=== PATIENT | male | born 1985 ===

== ENCOUNTER 2018-04-12 12:09 | Emergency (ER) | payer BC ==
[2018-04-12] MEDS ORDERED: Sodium Chloride 0.9% 1,000 ML IV STA ×3 (13:04→21:46)
[2018-04-12 13:46] LABS: ALB/GLOB RATIO 1.3 (1.0-2.1); ALBUMIN 4.7 g/dL (3.5-5.0); ALT/SGPT 91 U/L (21-72); AST/SGOT 54 U/L (17-59); BLOOD UREA NITROGEN 16 mg/dl (9-20); CALCIUM 9.6 mg/dL (8.4-10.2); GFR NON-AFRICAN AMERICAN > 60
[2018-04-12 13:51] LABS: BASO % 0.2 % (0.0-2.0); EOS % 0.5 % (0.0-4.0); HEMOGLOBIN 16.1 g/dL (12.0-18.0); LYMPH # 0.4 K/uL (1.0-4.3); LYMPH % 4.2 % (20.0-40.0); MEAN CELL VOLUME 93.6 fl (80.0-94.0); MEAN CORPUSCULAR HEMOGLOBIN 32.7 pg (27.0-31.0); MEAN PLATELET VOLUME 9.5 fl (7.2-11.7); MONO # 0.4 K/uL (0.0-0.8); MONO % 3.6 % (0.0-10.0); NEUT # 9.2 K/uL (1.8-7.0); NEUT % 91.5 % (50.0-75.0); PLATELET COUNT 191 K/uL (130-400); RBC 4.93 Mil/uL (4.40-5.90)
--- NOTE | 2018-04-12 14:04 | ED PDOC ---
HPI:Nausea, Vomiting, Diarrhea Time Seen by Provider: 04/12/18 12:39 Chief Complaint (Nursing): GI Problem Chief Complaint (Provider): N/V diarrhea History Per: Patient History/Exam Limitations: no limitations Additional Complaint(s): 32 y/o M with no significant PMH who presents with N/V and diarrhea since yesterday. Pt states that he had one episode of vomitting last night and then began having persistent diarrhea since then. Denies fever, chills, night sweats, ear pain, sore throat, cough, abdominal pain. He has not been drinking much as "everything is going right through me". He continues to have some nausea. He recently returned from the [place] 3 days ago and his son was seen in ED yesterday (and is here again today) with recurrent N/V and diarrhea. Denies drinking non-bottled water or eating raw foods in the DR. Past Medical History Reviewed: Historical Data, Nursing Documentation, Vital Signs Vital Signs: Last Vital Signs Temp 99.6 F 04/12/18 12:13 Pulse 121 H 04/12/18 12:13 Resp 18 04/12/18 12:13 BP 151/97 H 04/12/18 12:13 Pulse Ox 99 04/12/18 12:13 - Medical History PMH: No Chronic Diseases - Family History Family History: States: Unknown Family Hx - Home Medications Home Medications: Ambulatory Orders Medication Instructions Recorded Ondansetron ODT [Zofran ODT] 4 mg PO Q8 PRN 2 Days odt 04/12/18 - Allergies Allergies/Adverse Reactions: Allergies Allergy/AdvReac Type Severity Reaction Status Date / Time No Known Allergies Allergy Verified 04/12/18 12:12 Review of Systems Constitutional: Negative for: Fever, Chills Gastrointestinal: Positive for: Nausea, Vomiting, Diarrhea. Negative for: Abdominal Pain Physical Exam - Reviewed Nursing Documentation Reviewed: Yes Vital Signs Reviewed: Yes - Physical Exam Appears: Positive for: Non-toxic Head Exam: Positive for: ATRAUMATIC Skin: Positive for: Normal Color Eye Exam: Positive for: Normal appearance ENT: Positive for: TM Is/Are (Left occluded by cerumen, Right normal). Negative for: Nasal Congestion, Pharyngeal Erythema, Tonsillar Exudate Neck: Positive for: Normal Cardiovascular/Chest: Positive for: Regular Rate, Rhythm Respiratory: Positive for: Normal Breath Sounds Gastrointestinal/Abdominal: Positive for: Bowel Sounds (hyperactive), Soft. Negative for: Tenderness, Distended, Guarding Lymphatic: Positive for: Normal Exam Neurologic/Psych: Positive for: Alert, Oriented - Laboratory Results Result Diagrams: 04/12/18 13:13 04/12/18 13:13 Lab Results: Total Bilirubin 0.9 mg/dl (0.2-1.3) 04/12/18 13:13 AST 54 U/L (17-59) 04/12/18 13:13 ALT 91 U/L (21-72) H 04/12/18 13:13 Alkaline Phosphatase 91 U/L (38-126) 04/12/18 13:13 Total Protein 8.3 G/DL (6.3-8.2) H 04/12/18 13:13 Albumin 4.7 g/dL (3.5-5.0) 04/12/18 13:13 Globulin 3.6 gm/dL (2.2-3.9) 04/12/18 13:13 Albumin/Globulin Ratio 1.3 (1.0-2.1) 04/12/18 13:13 - ECG O2 Sat by Pulse Oximetry: 99 Medical Decision Making Medical Decision Making: CBC, CMP NS 1L IV x 1 Zofran 4mg IV x 1 14:00: pt c/o FELDMAN, Toradol 15mg IV x 1 ordered. 16:33: re-evaluated, feeling slightly better after fluids, but T: 100.7F and HR 115. Pt ordered for an additional 1L NS and Tylenol 650mg PO x 1. 19:45: T: 100.4 and HR 112, pt given additional Ibuprofen 600mg PO x 1 and Tylenol 325mg PO x 1. EKG ordered. 20:15: Patient endorsed to [facility] pending re-evaluation. Disposition - Clinical Impression Clinical Impression: Gastroenteritis, Vomiting - Patient ED Disposition Is Patient to be Admitted: Transfer of Care ([facility] Chery) - Disposition Referrals: Lynda Rubi MD [Staff Provider] - Disposition: Transfer of Care Disposition Time: 20:15 Condition: FAIR Additional Instructions: Stay hydrated as much as possible and avoid milk products or greasy foods. Would recommend eating foods like bananas, rice, applesauce, tea and toast. Wash your hands frequently as you are likely very contagious. F/u with primary care doctor for routine check ups. Return to ER if you are unable to tolerate liquids and stop urinating well. Prescriptions: Ondansetron ODT [Zofran ODT] 4 mg PO Q8 PRN 2 Days odt PRN Reason: Nausea/Vomiting Instructions: Nausea and Vomiting, Adult (DC) Forms: [facility] ([place]ian), [facility] ED School/Work Excuse Print Language: UKRAINIAN
[2018-04-12 14:55] LABS: BANDS 1 % (0-2); LYMPHOCYTE 6 % (20-50); MONOCYTE 7 % (0-10); NEUTROPHIL 86 % (42-75); TOTAL CELLS COUNTED 100
[2018-04-12 14:56] LABS: PLATELET ESTIMATE NORMAL (NORMAL)
--- NOTE | 2018-04-12 21:33 | ED PDOC ---
- Laboratory Results Result Diagrams: 04/12/18 13:13 04/12/18 13:13 Lab Results: Total Bilirubin 0.9 mg/dl (0.2-1.3) 04/12/18 13:13 AST 54 U/L (17-59) 04/12/18 13:13 ALT 91 U/L (21-72) H 04/12/18 13:13 Alkaline Phosphatase 91 U/L (38-126) 04/12/18 13:13 Total Protein 8.3 G/DL (6.3-8.2) H 04/12/18 13:13 Albumin 4.7 g/dL (3.5-5.0) 04/12/18 13:13 Globulin 3.6 gm/dL (2.2-3.9) 04/12/18 13:13 Albumin/Globulin Ratio 1.3 (1.0-2.1) 04/12/18 13:13 - ECG ECG: Positive for: Viewed By Me (reviewed by ED attending) ECG Rhythm: Positive for: Sinus Tachycardia O2 Sat by Pulse Oximetry: 99 - Progress ED Course And Treament: Case endorsed to ad writer from Deo Levy PA-C pending repeat vitals, ekg Tylenol and IV fluid bolus ordered for continued fever 23:30 Patient states he is feeling better. Afebrile. HR improved. Tolerating PO Patient educated on findings, discharged with rx ibuprofen, Bentyl, Zofran ADvised BRAT diet, increase fluid intake Follow up with PMD within 2-3 days Return precautions given Disposition - Clinical Impression Clinical Impression: Gastroenteritis - POA Present On Arrival: None - Disposition Referrals: Lynda Rubi MD [Staff Provider] - Disposition: Routine/Home Disposition Time: 23:38 Condition: IMPROVED Additional Instructions: Stay hydrated as much as possible and avoid milk products or greasy foods. Would recommend eating foods like bananas, rice, applesauce, tea and toast. Wash your hands frequently as you are likely very contagious. F/u with primary care doctor for routine check ups. Return to ER if you are unable to tolerate liquids and stop urinating well. Prescriptions: Dicyclomine [Bentyl] 20 mg PO TID PRN #15 tab PRN Reason: Pain, Mild (1-3) Ibuprofen [Motrin Tab] 1 tab PO Q6 PRN #20 tab PRN Reason: Fever >100.4 F Ondansetron ODT [Zofran ODT] 4 mg PO Q8 PRN 2 Days odt PRN Reason: Nausea/Vomiting Instructions: Viral Gastroenteritis Forms: [facility] (Bol[place]ian), [facility] ED School/Work Excuse Print Language: GUYANESE
[2018-04-12 23:56] VITALS: BP 107/65; PULSE 103; RESP 16; TEMP 99.2; O2SAT 95
--- NOTE | 2018-04-13 12:16 | CARD ---
APPROVED REPORT Date of service: 04/12/2018 EKG Measurement Heart [id number] <Conclusion> Sinus tachycardia Otherwise normal ECG
== END 2018-04-12 23:55 | disposition home or self-care (01) ==
LOC: H.ER 12:09
DX: K52.9 Noninfective gastroenteritis and colitis, unspecified (principal); R11.10 Vomiting, unspecified
CPT/HCPCS: 80053; 85025; 87804; 93005; 96361; 96374; 96375; 99284; J1885; J2405; J7030